=== PATIENT | male | born 1950 | race Caucasian/White ===

== ENCOUNTER 2017-12-19 18:57 | Emergency (ER) | payer MEDICAID, MEDICARE, OTHER ==
[~2017-12-19] VITALS: Ht 165.1 cm; Wt 83.0 kg
[~2017-12-19 18:57] MED LIST: CITA10SO PO; DOCU100T2 PO; EZET10TA14 PO; HYDR50CA PO; LEVE500T9 PO; OMEP20CA10 PO; PHEN100C4 PO; PHEN125O9 PO; SIMV20TA6 PO
--- NOTE | 2017-12-19 19:05 | NUR ---
[facility]RA DT UNWITNESSED SEIZURE, PT WAS FOUND ON THE FLOOR,. PATIENT UNABLE TO REMEMBER WHAT HAPPENED, PATIENT RECEIVED AWAKE AND ALERT, APPEARS IN NO APPARENT DISTRESS. SKIN IS WARM TO TOUCH AND NON DIAPHORETIC. PATIENT IS AFEBRILE. PT WITH HX OF SEIZURE- ON DILANTIN., SEIZURE PRECAUTION OBESERVED. GOWNED AND PLACED PT ON TELE MONITOR,. IV ACCESSED TO RAC20 AND BLOOD SAMPLE COLLECTED
[2017-12-19] MEDS ORDERED: LORAZEPAM INJ 2 MG/ML VIAL ONE ×2 (19:13→22:39)
[2017-12-19 19:19] LABS: BASOPHILS # (AUTO) 0.1 /CMM (0.0-0.2); BASOPHILS % (AUTO) 1.1 % (0.0-2.0); EOSINOPHILS # (AUTO) 0.1 /CMM (0.0-0.7); EOSINOPHILS % (AUTO) 1.1 % (0.0-6.0); HEMATOCRIT 45 % (39-51); HEMOGLOBIN 15.1 g/dL (13.5-17.5); LYMPHOCYTES # (AUTO) 2.7 /CMM (0.8-4.8); MEAN CORPUSCULAR HEMOGLOBIN 29 PG (26.0-33.0); MEAN CORPUSCULAR HGB CONC 34 g/dl (31.0-36.0); MEAN CORPUSCULAR VOLUME 86 fL (80-96); MONOCYTES # (AUTO) 1.2 /CMM (0.1-1.30); MONOCYTES % (AUTO) 9.7 % (2.0-12.0); NEUTROPHILS % (AUTO) 66.1 % (43.0-81.0); PLATELET COUNT (AUTO) 320 /CMM (150-450); RDW COEFFICIENT OF VARIATION 12.9 (11.5-15.0); RED BLOOD CELL COUNT(AUTO) 5.25 MIL/uL (4.5-6.0); WHITE BLOOD COUNT (AUTO) 12.1 K/uL (4.3-11.0)
--- NOTE | 2017-12-19 19:26 | NUR ---
PT RESTING QUIETLY, NO ACUTE DISTRESS NOTED, RESP EVEN AND UNLABORED. PT AAOX4. PT DENIES PAIN OR DISCOMFORT AT THIS TIME. CALL LIGHT TOMAS CHOPRA. WILL CONTINUE TO MONITOR PT CLOSELY.
[2017-12-19 19:29] LABS: CALCIUM, SERUM 8.5 mg/dL (8.5-10.1); CREATININE 0.8 mg/dL (0.6-1.3); POTASSIUM 3.7 mmol/L (3.5-5.1)
[2017-12-19] MEDS ORDERED: LORAZEPAM INJ 2 MG/ML VIAL IVP ONE (19:30)
[2017-12-19 19:37] LABS: PHENYTOIN (DILANTIN) 14.8 ug/ml (10.0-20.0)
--- NOTE | 2017-12-19 20:05 | NUR ---
[facility], ETA OF 2200 WAS GIVEN. TRIP#[id number]
--- NOTE | 2017-12-19 22:18 | NUR ---
NEW ETA [id number]
--- NOTE | 2017-12-19 22:36 | NUR ---
NOTED PT HAVING A SEIZURE, ER MD AT BEDSIDE TO RE-EVAL PT WITH ORDERS RECEIVED. RN TO MEDICATE PT.
--- NOTE | 2017-12-19 22:40 | NUR ---
PT MEDICATED BY RN PER ER MD ORDER.
--- NOTE | 2017-12-19 22:53 | NUR ---
PT TRANSPORTED TO RADIOLOGY FOR CT HEAD.
[2017-12-19] MEDS ORDERED: LORAZEPAM INJ 2 MG/ML VIAL IV ONE (23:00)
--- NOTE | 2017-12-19 23:07 | NUR ---
PT BACK FROM RADIOLOGY. PENDING CT HEAD RESULT.
--- NOTE | 2017-12-19 23:16 | NUR ---
CALLED [facility] , THE ATTENDANT NOTIFIED ME THAT PATIENT'S PCP IS DR BARRETT
[2017-12-19] MEDS ORDERED: LIDOCAINE 2% JEL UROJET 10 ML MM ONE ×2 (23:25→23:30)
[2017-12-19] MEDS ORDERED: IV NS 0.9% 1,000 ML BAG IV ONE (23:30)
--- NOTE | 2017-12-19 23:35 | NUR ---
I&O CATH DONE, URINE SAMPLE COLLECTED AND SENT TO LAB, NOTED APPROXIMATELY 1200ML OF CLEAR YELLOW URINE.
[2017-12-19 23:43] LABS: APPEARANCE,URINE CLEAR (CLEAR); BILIRUBIN,URINE NEGATIVE (NEGATIVE); BLOOD, URINE NEGATIVE Ery/uL (NEGATIVE); COLOR,URINE YELLOW (YELLOW); KETONES,URINE NEGATIVE (NEGATIVE); LEUKOCYTE ESTERASE ,URINE NEGATIVE (NEGATIVE); NITRITE, URINE NEGATIVE (NEGATIVE); PROTEIN,URINE NEGATIVE (NEGATIVE); UGLUCOSE NEGATIVE (NEGATIVE); UROBILINOGEN,URINE 0.2 EU/dL (0.2)
--- NOTE | 2017-12-19 23:51 | NUR ---
[phone]
--- NOTE | 2017-12-20 | NUR ---
ETA AT 0300 [facility] SPOKE TO DEEPA
--- NOTE | 2017-12-20 01:12 | NUR ---
IV removed. Catheter intact and site benign. Pressure and 4x4 applied to site. No bleeding noted. transport at bedside report given to emt.
[2017-12-20 01:13] VITALS: BP 114/60
== END 2017-12-20 01:14 | disposition home or self-care (01) ==
LOC: ER 19:01
DX: G40.909 Epilepsy, unspecified, not intractable, without status epilepticus (principal); G93.89 Other specified disorders of brain; K21.9 Gastro-esophageal reflux disease without esophagitis; Z98.890 Other specified postprocedural states
CPT/HCPCS: 36415; 70450-TC; 71045-TC; 80048-TC; 80185-TC; 81000-TC; 82962-TC; 85025-TC; A4606; J2060; J3490; J7030; Z7610